=== PATIENT | female | born 1965 | race Caucasian/White ===

== ENCOUNTER → 2020-12-09 12:58 | Outpatient (BNVA) | payer BC, SELFPAY | PROVIDERS: Visit Provider Internal Medicine Gastroenterology ==

== ENCOUNTER 2021-02-12 09:41 | Day surgery (SDC) | payer BC, SELFPAY ==
--- NOTE | 2021-02-11 12:54 | HO.ANESPROP2 ---
Documented by User: Rochelle Oharaney 02/11/21 12:54 [facility] Active Problems Active Problems: All Active Problems (Updated 02/11/21 @ 12:31 by Mayuri Swann) Hx of colonic polyp (Acute) Past Medical History Medical History Seasonal allergies Surgical History Surgical History History of bilateral tubal ligation Social History Social History Alcohol intake: current Alcohol intake frequency: holidays/special occasions only Patient Tobacco Use Status: Never used Tobacco Use of substances other than those prescribed or required for medical reasons: No Have you been hit, kicked, punched, or otherwise hurt by someone within the past year? If so, by whom?: No Are you DNR?: No Advance Directives: No Advance Directives Information Provided: Yes Recently lost weight without trying: No Nutrition Risks: No Nutritional Risk Patient : No Meds Allergies Allergy/AdvReac Type Severity Reaction Status Date / Time Seasonal Allergies Allergy Unknown Verified 02/11/21 12:38 Sulfa (Sulfonamide Allergy Unknown Verified 02/11/21 12:38 Antibiotics) Home Medications Medication Instructions Recorded Confirmed Last Taken Type Andreia Allergy 80 mg PO 02/11/21 Unknown History Exam Exam Date and Time: February 11, 2021 1254 Assessment and Plan Assessment Anesthesia Assessment: Chart Reviewed Documented by User: Steven Goodman MD 02/12/21 10:22 [facility] Past Medical History Medical History Seasonal allergies Surgical History Surgical History History of bilateral tubal ligation Social History Social History Alcohol intake: current Alcohol intake frequency: holidays/special occasions only Patient Tobacco Use Status: Never used Tobacco Use of substances other than those prescribed or required for medical reasons: No Have you been hit, kicked, punched, or otherwise hurt by someone within the past year? If so, by whom?: No Are you DNR?: No Advance Directives: No Advance Directives Information Provided: Yes Recently lost weight without trying: No Nutrition Risks: No Nutritional Risk Patient : No Meds Allergies Allergy/AdvReac Type Severity Reaction Status Date / Time Seasonal Allergies Allergy Unknown Verified 02/11/21 12:38 Sulfa (Sulfonamide Allergy Unknown Verified 02/11/21 12:38 Antibiotics) Home Medications Medication Instructions Recorded Confirmed Last Taken Type Andreia Allergy 80 mg PO 02/11/21 Unknown History Exam Airway Mallampati Class: II TM Dist: >3cm Neck ROM: Full Loose/Missing/Broken Teeth: No Heart: RRR Assessment and Plan Assessment Anesthesia Assessment: Anesthesia Plan Discussed and Chart Reviewed Final Anesthetic Review NPO: Yes ASA Class: III Final Preanesthetic Review: No Changes in Pt Med Stat, Meds/Allgs Chart Reviewed, Consent Obtained/Reviewed and Anes Risks/Benef Reviewed Patient Risk: Low Procedure Risk: Low Anesthetic Plan Anesthetic Plan: MAC: Disposition: Standard PACU
[2021-02-12 09:49] VITALS: BP 144/84; PULSE 79; RESP 18; TEMP 36.9; O2SAT 97; BMI 25.7
[2021-02-12] MEDS: Lactated Ringers 1,000 ML 100 ML IVCONT (10:00)
--- NOTE | 2021-02-12 10:31 | MHC.SHP ---
Pre-Procedural Eval Section A Date of Service: 02/12/21 Section B Chief Complaint: Hx of Colon polyps Relevant Family History (Specify if Yes): No Relevant Social History: None Present Medications: see Short Stay Collaborative assessment Medical History: Significant History (Seasonal allergies) History of Previous Operations: Relevant previous surgery/procedure and date(s) (tubla ligation) Allergies: Allergies Allergy/AdvReac Type Severity Reaction Status Date / Time Seasonal Allergies Allergy Unknown Verified 02/11/21 12:38 Sulfa (Sulfonamide Allergy Unknown Verified 02/11/21 12:38 Antibiotics) Review of Systems Sugical H&P ROS: Negative: Constitution, Cardiovascular, Respiratory, Neurological, Psychiatric, Hem-Onc, Allergic/Immunologic, Gastrointestinal, Genitourinary, Musculoskeletal, Integumentary, Endocrine and Eyes/Ears/Nose/Throat Exam Surgical H&P Exam: Normal: HEENT, Normal: Heart, Normal: Lungs, Normal: Extremities, Normal: Abdomen, Normal: Skin and Normal: Neurological Plan Diagnosis/Plan: Unchanged I have reviewed the history and physical and performed a pertinent physical examination on my patient. No changes have occurred unless specified.
--- NOTE | 2021-02-12 11:07 | P.OP_ITS ---
Operative Note Operative Note Date of Service: 02/12/21 Narrative: Operative Information Procedure Description: Colonoscopy COLONOSCOPY Instrument: Olympus variable stiffness pediatric scope 190L Colonoscopy Monitoring: Vital signs and clinical assessment, continuous EKG monitoring, Pulse oximetry, Carbon Dioxide monitoring and blood pressure monitoring were done throughout the procedure. Colon withdrawal time was 12 minutes. Procedure: The patient was placed in the left lateral decubitis position and pre-procedure medications were administered. After a digital rectal examination of the ano-rectum, the video colonoscope was inserted into the rectum and advanced through the colon to the cecum/TI. The colonoscope was slowly withdrawn in a retrograde panoramic fashion and the colon mucosa was carefully examined including a retroflexed view of the rectum. Findings and interventions are described below. Procedure Difficulty:moderate, pressure applied to reach cecum and TI Findings: Terminal Ileum-normal Cecum: 7-9 mm sessile polyp removed with cold snare Ascending Colon: normal Transverse Colon -normal Descending Colon: 7-9 mm sessile polyp partially removed with cold snare but then forceps used as she was coughing a lot Sigmoid Colon: normal Rectum: Retroflexion with small internal hemorrhoids, grade I Anorectum - normal Colon preparation: [place] Bowel Preparation Scale Right colon; 2 Transverse colon: 3 Left colon; 2 (0 = Unprepared colon segment with mucosa not seen due to solid stool that cannot be cleared. 1 = Portion of mucosa of the colon segment seen, but other areas of the colon segment not well seen due to staining, residual stool and/or opaque liquid. 2 = Minor amount of residual staining, small fragments of stool and/or opaque liquid, but mucosa of colon segment seen well. 3 = Entire mucosa of colon segment seen well with no residual staining, small fragments of stool or opaque liquid) Impression and Post Procedure Diagnosis: polyps internal hemorrhoids Plan: High fiber diet leaflet Avoid straining at stool, epsom salts and sitz bath, anusol supps or cream prn Repeat Colonoscopy in 5 years or earlier if clincially indicated Above findings were reviewed with the patient and relevant handouts were provided if indicated.
--- NOTE | 2021-02-12 11:07 | PM.OP ---
Brief Operative Note Date of Service: 02/12/21 Pre-op diagnosis: hx of colon polyp Post-op diagnosis: same Procedure: see op note Surgeon: Kerry Booth MD Anesthesia: MAC Was an Outcome Analyst used for this Procedure?: No Estimated blood loss (mL): 0 Condition: stable Disposition: PACU
[2021-02-12 11:15] VITALS: BP 108/68; PULSE 87; RESP 16; TEMP 36.4; O2SAT 99
[2021-02-12 11:30] VITALS: BP 115/73; PULSE 80; RESP 18; O2SAT 98
== END 2021-02-12 12:00 | disposition home or self-care (01) ==
PROVIDERS: PCP Family Medicine; Visit Provider Internal Medicine Gastroenterology
PROC: 0DJD8ZZ Inspection of Lower Intestinal Tract, Via Natural or Artificial Opening Endoscopic (ICD-10-PCS; CPT 45378; principal; 2021-02-12 10:30)
DX: Z12.11 Encounter for screening for malignant neoplasm of colon (principal); Z86.010 Personal history of colon polyps; K63.5 Polyp of colon; K64.0 First degree hemorrhoids; J30.2 Other seasonal allergic rhinitis; Z88.2 Allergy status to sulfonamides
CPT/HCPCS: 45385; 45380; 88305

== ENCOUNTER → 2021-04-28 10:01 | Outpatient (BNVA) | payer BC, SELFPAY | PROVIDERS: PCP Family Medicine; Visit Provider Internal Medicine Gastroenterology ==